=== PATIENT | male | born 1940 | race Caucasian/White ===

== ENCOUNTER 2021-03-24 17:13 | Emergency (ER) | payer MEDICARE ==
[2021-03-24 18:58] VITALS: BP 182/82; PULSE 61
[2021-03-24] MEDS ORDERED: Lidocaine 5% 700 MG Patch TOP ONE (19:11)
[2021-03-24] MEDS ORDERED: Acetaminophen 325 MG Tab PO ONE (19:13)
[2021-03-24] MEDS ORDERED: Ketorolac 30 MG/ML SDV IM ONE (20:20)
[2021-03-24] MEDS ORDERED: Methocarbamol 500 MG Tab PO ONE (20:20)
--- NOTE | 2021-03-24 20:30 | EDM.PDOC ---
ED HPI GENERAL MEDICAL PROBLEM - General Chief Complaint: Chest Pain Stated Complaint: BROKEN RIBS Time Seen by Provider: 03/24/21 19:22 Source of Information: Reports: Patient - History of Present Illness INITIAL COMMENTS - FREE TEXT/NARRATIVE: Boone is a 80 year old male whom presents to ER after falling on deck with afternoon resulting in left lower posterior rib pain which has progressively worsened over the last 4 hours with intermittent spasms, catching his breath. Boone denies any other injuries with fall this afternoon. Boone drove himself to the ER for evaluation this evening. He did not take Tylenol, Ibuprofen, Aspirin at home before presenting to ER. Left Thoracic Pain Score (Numeric/FACES): 9 - Related Data Allergies Allergy/AdvReac Type Severity Reaction Status Date / Time No Known Allergies Allergy Verified 03/24/21 18:59 Home Meds: Home Meds atorvaSTATin [Lipitor] 80 mg PO BEDTIME 08/03/16 [History] Aspirin [Ecotrin EC] 1 tab PO DAILY 03/24/21 [History] Donepezil [Aricept] 1 tab PO DAILY 03/24/21 [History] Hydrocodone/Acetaminophen [Hydrocodon-Acetaminophen 5-325] 1 - 2 each PO Q6HR PRN 5 Days #10 tablet 03/24/21 [Rx] methocarbamoL [Robaxin] 500 - 1,000 mg PO TID PRN 5 Days #20 tab 03/24/21 [Rx] Past Medical History Cardiovascular History: Reports: High Cholesterol Genitourinary History: Reports: Other (See Below) Other Genitourinary History: "overactive bladder" Neurological History: Reports: Other (See Below) Other Neuro History: takes aricept for memory issues - Infectious Disease History Infectious Disease History: Reports: Chicken Pox, Measles, Mumps - Past Surgical History HEENT Surgical History: Reports: Adenoidectomy, Cataract Surgery, Tonsillectomy Cardiovascular Surgical History: Reports: Coronary Artery Bypass, Coronary Artery Stent Other Cardiovascular Surgeries/Procedures: bypass 2000 Male Surgical History: Reports: Prostatectomy Social & Family History - Tobacco Use Tobacco Use Status *Q: Former Tobacco User Used Tobacco, but Quit: Yes Month/Year Tobacco Last Used: 10/1959 - Caffeine Use Caffeine Use: Reports: Coffee, Soda - Recreational Drug Use Recreational Drug Use: No ED ROS GENERAL - Review of Systems Review Of Systems: Comprehensive ROS is negative, except as noted in HPI. ED EXAM, GENERAL - Physical Exam Exam: See Below General Appearance: Alert, WD/WN, Moderate Distress (right posterior inferior chest wall pain without obvious swelling or bruising ) Eye Exam: Bilateral Eye: EOMI, Normal Inspection Ears: Normal Canal, Hearing Grossly Normal Nose: Normal Inspection Throat/Mouth: Normal Inspection, Normal Voice, No Airway Compromise Neck: Normal Inspection Respiratory/Chest: No Respiratory Distress, Lungs Clear, Normal Breath Sounds, Splinting (respirations due to pain and intermittent spasms ) Cardiovascular: Normal Peripheral Pulses, Regular Rate, Rhythm GI/Abdominal: Normal Bowel Sounds, Soft Extremities: Normal Inspection, Normal Range of Motion Neurological: Alert, Oriented Psychiatric: Normal Affect, Other (difficulty with patience ) Skin Exam: Warm, Dry, Intact, Normal Color Course - Vital Signs Last Recorded V/S: Last Vital Signs Temp 35.3 C L 03/24/21 18:57 Pulse 61 03/24/21 18:57 Resp 20 03/24/21 18:57 BP 182/82 H 03/24/21 18:57 Pulse Ox 97 03/24/21 18:57 - Orders/Labs/Meds Orders: Active Orders 24 hr Category Date Time Status Chest 2V [CR] Stat Exams 03/24/21 19:12 Taken Meds: Medications Discontinued Medications Generic Name Dose Route Start Last Admin Trade Name Nadia PRN Reason Stop Dose Admin Acetaminophen 650 mg 03/24/21 19:13 03/24/21 19:40 Acetaminophen 325 Mg Tab PO 03/24/21 19:14 650 mg NOW ONE Administration Ketorolac Tromethamine 30 mg 03/24/21 20:20 Ketorolac 30 Mg/Ml Sdv IM 03/24/21 20:21 ONETIME ONE Lidocaine 700 mg 03/24/21 19:11 03/24/21 19:40 Lidocaine 5% 700 Mg Patch TOP 03/24/21 19:12 700 mg ONETIME ONE Administration Methocarbamol 500 mg 03/24/21 20:20 Methocarbamol 500 Mg Tab PO 03/24/21 20:21 ONETIME ONE - Re-Assessments/Exams Free Text/Narrative Re-Assessment/Exam: 03/24/21 20:37 Bedside Lung Ultrasound completed: Normal slide sign. No signs of pneumothorax. Departure - Departure Time of Disposition: 20:45 Disposition: Home, Self-Care 01 Clinical Impression: Chest injuries, Rib injury - Discharge Information Prescriptions: Hydrocodone/Acetaminophen [Hydrocodon-Acetaminophen 5-325] 1 - 2 each PO Q6HR PRN 5 Days #10 tablet PRN Reason: Pain (Moderate 4-6) methocarbamoL [Robaxin] 500 - 1,000 mg PO TID PRN 5 Days #20 tab PRN Reason: pain Instructions: Blunt Chest Trauma, Nonspecific Chest Pain, Adult, [id number], Rib Fracture, Rib Contusion Referrals: PCP,None [Primary Care Provider] - Additional Instructions: Instymed prescription Parrish (hydrocodone 5/acetaminophen 325mg) 1-2 tablets every 4-6 hrs for moderate to severe pain. # 10 Additional Prescription written Parrish (hydrocodone 5/acetaminophen 325mg) 1-2 tablets every 4-6 hrs for moderate to severe pain. # 10 Robaxin 500mg 1-2 tablets every 6-8 hours for muscle spasms and pain #20 Rib injury and fracture noted. Sepsis Event Note (ED) - Evaluation Sepsis Screening Result: No Definite Risk - Focused Exam Vital Signs: Vital Signs Temp Pulse Resp BP Pulse Ox 03/24/21 18:57 35.3 C L 61 20 182/82 H 97 - My Orders Last 24 Hours: My Active Orders 03/24/21 19:12 Chest 2V [CR] Stat - Assessment/Plan Last 24 Hours: My Active Orders 03/24/21 19:12 Chest 2V [CR] Stat
--- NOTE | 2021-03-27 09:25 | CR ---
CHEST: 2 view CLINICAL HISTORY:Chest wall injury COMPARISON:None FINDINGS: The focus of pain is not noted. There is no marker. Patient has had previous sternotomy. Lung jeff are clear. Heart and pulmonary vascularity are normal. There is no pneumothorax or pleural effusion. Impression: No acute cardiac pulmonary process. Chest x-ray is less than optimal for rib detail. No obvious fracture is identified If clinical symptomatology persists or worsens a rib study is recommended.
== END 2021-03-24 20:49 | disposition home or self-care (01) ==
LOC: JP.ED 17:13
DX: S29.9XXA Unspecified injury of thorax, initial encounter (principal); E78.00 Pure hypercholesterolemia, unspecified; Z79.82 Long term (current) use of aspirin; Z79.899 Other long term (current) drug therapy; Z87.891 Personal history of nicotine dependence; W17.4XXA Fall from dock, initial encounter
CPT/HCPCS: 71046; 96372; 99283; A9270; J1885